=== PATIENT | male | born 1995 | race Caucasian/White ===

== ENCOUNTER 2021-11-05 03:44 | Inpatient (IN) | payer MEDICAID ==
[~2021-11-05] VITALS: Ht 193 cm; Wt 95.3 kg
[2021-11-05 03:57] VITALS: BP 134/98
--- NOTE | 2021-11-05 03:57 | NUR ---
PT W/C ASSISTED TO BED #9
--- NOTE | 2021-11-05 04:08 | NUR ---
26 YO M BIB SELF WITH C/C OF 10/10 ABD PAIN X2HRS. PT POINTS AT EPIGASTRIC REGION. REPORTS EPISODE OF VOMITING. PT SUSTAINED FALL IN LOBBY. PT STATES HE LOST CONCIOUSNESS, FELL HEAD FIRST TO FLOOR BUT DID NOT HIT HEAD PER PT AND SIGNIFICANT OTHER. NO VISIBLE INJURIES. PT STATES "I PASSED OUT BECAUSE PAIN". DENIES HX, RX AND ALLERGIES Addendum: 11/05/21 at 0411 by MEDiWeebo PT TOOK 2 OMEZAPRAZOLE AND 650MG X2HR WITH NO RELIEF.
[2021-11-05] MEDS ORDERED: ONDANSETRON 4 MG/2 ML VIAL IVP ONE (04:25)
[2021-11-05] MEDS ORDERED: NACL 0.9% 1,000 ML IV ONE (04:25)
[2021-11-05] MEDS ORDERED: FAMOTIDINE 20 MG/2 ML VIAL IVP ONE (04:25)
[2021-11-05] MEDS ORDERED: MORPHINE SULFATE 4 MG/ML SYR IVP ONE ×2 (04:25→05:20)
--- NOTE | 2021-11-05 04:39 | NUR ---
BLOOD TAKEN TO LAB, ROBYN MADE AWARE.
[2021-11-05 04:48] LABS: BASOPHILS % (AUTO) 0.2 % (0.0-2.0); EOSINOPHILS % (AUTO) 0.5 % (0.0-4.0); HEMATOCRIT 41.7 % (36-52); HEMOGLOBIN 14.5 g/dL (12.0-18.0); LYMPHOCYTES # (AUTO) 1.9 K/uL (2.0-11.5); LYMPHOCYTES % (AUTO) 21.7 % (20.5-51.1); MEAN CORPUSCULAR HEMOGLOBIN 31 pg (27-31); MEAN CORPUSCULAR HGB CONC 35 g/dL (33-37); MEAN CORPUSCULAR VOLUME 88.9 fL (80-94); MONOCYTES # (AUTO) 0.5 K/uL (0.8-1.0); MONOCYTES % (AUTO) 5.6 % (1.7-9.3); NEUTROPHILS # (AUTO) 6.3 K/uL (1.8-7.7); PLATELET COUNT (AUTO) 152 K/uL (140-450); RED BLOOD CELL COUNT(AUTO) 4.69 MIL/uL (4.20-6.10); RED CELL DISTRIBUTION WIDTH 12.6 % (11.6-13.7); WHITE BLOOD COUNT (AUTO) 8.8 K/uL (4.8-10.8)
[2021-11-05 05:05] LABS: CARBON DIOXIDE 21.2 mmol/L (21-32); CREATININE 1.2 mg/dL (0.6-1.3); POTASSIUM 3.2 mmol/L (3.5-5.1); TOTAL BILIRUBIN 0.2 mg/dL (0.0-1.0)
--- NOTE | 2021-11-05 05:18 | NUR ---
VERBAL ORDER FOR IVP MORPHINE 4MG FOR PAIN
--- NOTE | 2021-11-05 05:44 | NUR ---
US AT BEDSIDE
--- NOTE | 2021-11-05 06:21 | NUR ---
ROSSANA COLLECTED AND TAKEN TO LAB. NO OPEN WOUNDS PER SKIN CHECK. NO MEDS. MED RECON COMPLETED.
--- NOTE | 2021-11-05 07:17 | NUR ---
REPORT GIVEN TO GRAYSON ARNETT. TRANSFER OF CARE AT THIS TIME.
--- NOTE | 2021-11-05 07:18 | NUR ---
RECEIVED REPORT FROM SAMARA GALICIA, TRANSFER OF CARE AT THIS TIME. PT A/O X4 GCS 15, PT CAME IN FOR EPIGASTRIC PAIN, MEDSURG HOLD, ADMITTED FOR INTRACTABLE PAIN SECONDARY TO GALLSTONES. EVEN AND UNLABORED RESPIRATIONS NOTED.
--- NOTE | 2021-11-05 07:31 | NUR ---
PT MOVED TO ER BED 8
--- NOTE | 2021-11-05 08:03 | NUR ---
PT ASKING WHEN HIS DOCTOR WILL BE COMING TO SEE HIM, INFORMED HIM THAT HIS ADMITTING DOCTOR IS NOT IN HOUSE AND WILL MAKE HIS ROUNDS SOMETIME TODAY, I DO NOT HAVE AN EXACT TIME.
[2021-11-05] MEDS: MORPHINE SULFATE 2 MG/ML SYR IVP PRN ×2 (08:10→13:26)
[2021-11-05] MEDS: NACL 0.9% 1,000 ML IV SCH ×2 (08:14→21:43)
--- NOTE | 2021-11-05 08:15 | NUR ---
PT C/O 10/10 EPIGASTRIC PAIN. PT MEDICATED PER PRN ORDERS. ALL NEEDS MET.
--- NOTE | 2021-11-05 12:02 | NUR ---
PT UPSET STATING THAT HE HAS NOT SEEN A DOCTOR SINCE HE HAS BEEN HERE. EXPLAINED TO PT THAT HE SAW THE ER DOCTOR, DR ANNE WHEN HE CAME IN. I EXPLAINED TO THE PATIENT THAT I ONLY TOOK OVER HIS CARE AT 7AM THIS MORNING. HE STATED THAT HE HASNT RECEIVED ANY CARE THIS MORNING AND THE FLUIDS THAT ARE ATTACHED TO HIM ARE NOT RUNNING. I EXPLAINED THE PATIENT THAT FLUIDS ARE RUNNING AT 70ML/HR WHICH IS THE PRESCRIBED ORDER AND I SHOWED HIM THE FLUIDS DROPPING AND EXPLAINED THAT OVER 200ML HAS BEEN INFUSED THUS FAR. EXPLAINED TO THE PATIENT THAT MORPHINE IS ONLY SCHEDULED FOR Q4 HOURS AND I AM NOT ABLE TO ADMINISTER IT BEFORE 4 HOURS. I EXPLAINED TO THE PATIENT DR MCKENZIE IS HIS ADMITTING DOCTOR AND HE IS NOT IN HOUSE AND HE WILL MAKE HIS ROUNDS WHEN HE GETS TO THE HOSPITAL. EXPLAINED TO THE PATIENT THAT I DO NOT HAVE AN EXACT TIME. PT BEGAN RECORDING MY CONVERSATION WITH HIM BECAUSE HIS COUSIN IS A ELECTRICAL SYSTEMS DESIGN ENGINEER. PTS COUSIN MANDA CALLED FOR AN UPDATE BUT WAS NOT ABLE TO PROVIDE HIS CORRECT FIRST AND LAST NAME, SO I WAS NOT ABLE TO PROVIDE INFORMATION. EXPLAINED TO THE PATIENT THAT WITHOUT PROPER IDENTIFICATION OF THE PATIENT, I AM NOT ABLE TO RELEASE INFORMATION. PT STATED HE UNDERSTOOD. I INFORMED HIM THAT I WILL CONTACT DR MCKENZIE TO ASK WHAT TIME HE WILL BE MAKING ROUNDS, AWAITING RESPONSE AT THIS TIME. PT IS C/O 10/04 EPIGASTRIC PAIN, REQUESTING PAIN MEDS. FURNITURE MOVER DRIVER ALISA #[id number] USED. Addendum: 11/05/21 at 1222 by MED1 I ASKED THE PATIENT IF THERE IS ANYTHING ELSE HE NEEDS AT THIS TIME, PT STATED NO HE ONLY WANTS TO TALK TO THE DOCTOR.
[2021-11-05] MEDS ORDERED: SEVOFLURANE 250 ML BTL INH ONE (12:36)
--- NOTE | 2021-11-05 12:48 | NUR ---
PT TAKEN TO CT VIA ANNA
--- NOTE | 2021-11-05 12:54 | NUR ---
PT BACK FROM CT AND CONNECTED TO MONITOR AND FLUIDS
--- NOTE | 2021-11-05 13:09 | NUR ---
DR MCKENZIE AT BEDSIDE EVALUATING PT, DRIVEMATIC MACHINE OPERATOR SERVICES USED
--- NOTE | 2021-11-05 13:15 | NUR ---
Patient's Plan of Care was discussed and reviewed with MARKETING INFORMATION MANAGER: PAM WALKER
--- NOTE | 2021-11-05 13:42 | NUR ---
Patient will be admitted to care of [facility]. Admited to [facility]. Will go to room 112B. Belongings list completed. Report to CONNOR GALICIA.
--- NOTE | 2021-11-05 13:45 | NUR ---
ADMISSION ASSESSMENT/PROCESS COMPLETED. USED LAW OFFICE RECEPTIONIST #[id number] TO GATHER DATA. Addendum: 11/05/21 at 1541 by Sherman Pichardo LVN ERROR
--- NOTE | 2021-11-05 13:50 | NUR ---
RECEIVED REPORT FROM ER NURSE HOPE. PT WHEELED TO [facility] FROM ER VIA WHEELCHAIR. PT ABLE TO AMBULATE FROM WHEELCHAIR TO BED. A&O4, ABLE TO COMMUNICATE NEEDS. WELSH SPEAKER. RESPIRATIONS EVEN AND UNLABORED ON RA. NO DISTRESS NOTED. V/S STABLE. ABDOMEN SOFT AND NON-TENDER. SKIN IS INTACT, WARM AND DRY TO TOUCH. IV SITE AT RAC 20G, INFUSING NS AT 70ML/HR. PT ORIENTED TO ROOM, UNIT AND ROUTINES. PT ON NPO, PT AND DINING SERVICES MANAGER MADE AWARE. MRSA TAKEN. CALL LIGHT WITHIN REACH. SAFETY PRECAUTIONS IN PLACE. WILL CONTINUE TO MONITOR.
--- NOTE | 2021-11-05 14:00 | NUR ---
ADMISSION ASSESSMENT/PROCESS COMPLETED. USED CORE FITTER #[id number] TO GATHER DATA.
--- NOTE | 2021-11-05 15:05 | NUR ---
DR MCKENZIE ORDERED STATUS CODE,FC. KDUR 40MEQ ONCE FOR POTASSIUM 3.2. PT NPO EXCEPT MEDS. ORDERS CARRIED OUT.
[2021-11-05] MEDS ORDERED: POTASSIUM CHLORIDE 10 MEQ TABER PO SCH (15:15)
[2021-11-05 16:00] VITALS: BP 120/70
--- NOTE | 2021-11-05 17:41 | NUR ---
PATIENT HAS BEEN SCREENED AND CATEGORIZED LOW NUTRITION RISK. PATIENT WILL BE SEEN WITHIN 7 DAYS OF ADMISSION. 11/05/21-11/11/[address]
--- NOTE | 2021-11-05 19:13 | NUR ---
ENDORSED PT TO FUEL AGENT NURSE FOR CONTINUITY OF CARE. ALL NEEDS MET THROUGHOUT SHIFT. PT IS STABLE.
--- NOTE | 2021-11-05 19:30 | NUR ---
RECEIVED REPORT FROM DAY SHIFT NURSE PAM. PATIENT IS A&O X 4, BENINESE SPEAKING. PATIENT IS ON ROOM AIR, BREATHING IS NORMAL WITH SYMMETRICAL RISE AND FALL OF CHEST. IV IS A 20G IN RIGHT AC, RUNNING NS 70. PATIENT IS NPO EXCEPT MEDS PENDING A HIDA SCAN LATER TONIGHT. PATIENT IS SITTING UP IN BED. BED IS IN LOWEST POSITION, WHEELS LOCKED, CALL LIGHT IN PLACE. WILL CONTINUE TO OBSERVE PATIENT.
[2021-11-05 20:00] VITALS: BP 127/81
--- NOTE | 2021-11-05 21:30 | NUR ---
POLO FROM RADIOLOGY CAME DOWN TO SEE THE PATIENT FOR THE HYDA SCAN. POLO VERIFIED WITH ME THAT THE PATIENT HAS BEEN NPO. POLO THEN SAID THAT PATIENT NEEDED TO DRINK HIGH FAT MILK FOR TEST. SHOWED POLO THE REDUCED FAT MILK IN THE FRIDGE, HE SAID IT WOULD NOT WORK. TRIED CALLING THE CROWN IRONER OPERATOR, WAS UNABLE TO GET A HOLD OF HER. WENT TO THE OFFICE, DOOR WAS CLOSED AND NO ANSWER WHEN KNOCKING. CHECKED CAFETERIA, UNABLE TO FIND MILK IN CAFETERIA AREA. RILEY WAS FINALLY ABLE TO GET A HOLD OF SOME HIGH FAT MILD IN THE FORM OF ENSURE. GAVE ENSURE TO PATIENT STATING HE NEEDED TO DRINK IT FOR THE PROCEDURE. PATIENT UNDERSTOOD AND IMMEDIATELY DRANK THE ENSURE. WILL CONTINUE TO OBSERVE PATIENT.
--- NOTE | 2021-11-06 | NUR ---
PATIENT WAS PICKED UP FOR HIDA SCAN A LITTLE AFTER 2300. POLO WILL CALL WHEN IT'S TIME TO BRING THE PATIENT HIS MORPHINE. WHEN THE TEST IS COMPLETE. WILL WAIT FOR PHONE CALL FROM POLO FROM RADIOLOGY.
[2021-11-06] MEDS: MORPHINE SULFATE 2 MG/ML SYR IVP PRN (00:43)
--- NOTE | 2021-11-06 00:45 | NUR ---
POLO HAD CALLED AND INFORMED ME THAT PATIENT WOULD BE GOOD TO RECEIVE MORPHINE IN ABOUT 30 MINUTES. PULLED MEDICATION AND WAITED FOR POLO'S CALL THAT PATIENT WAS READY. POLO LATER CALLED AND SAID PATIENT WAS READY TO GET MORPHINE. WENT DOWN TO RADIOLOGY ASSESSED PATIENT AND PROVIDED PATIENT WITH MORPHINE FOR RIGHT LOWER SIDE PAIN. PATIENT TOLERATED WELL. POLO WILL BRING PATIENT BACK TO UNIT IN A FEW MINUTES. WILL WAIT FOR PATIENT TO RETURN TO UNIT.
--- NOTE | 2021-11-06 01:45 | NUR ---
PATIENT ARRIVED BACK ON UNIT. ASSISTED PATIENT BACK INTO BED. ASKED PATIENT IF MORPHINE HELPED WITH PAIN. PATIENT STATED A LITTLE BIT. PATIENT GOT BACK INTO BED TO GO TO SLEEP. WILL CONTINUE TO OBSERVE PATIENT.
--- NOTE | 2021-11-06 03:00 | NUR ---
LOOKED IN ON PATIENT. PATIENT WAS SLEEPING. BREATHING WAS NORMAL WITH SYMMETRICAL RISE AND FALL OF CHEST. IV WAS RUNNING NS AT 70. WILL CONTINUE TO OBSERVE PATIENT.
[2021-11-06] MEDS: NACL 0.9% 1,000 ML IV SCH ×2 (03:15→23:15)
[2021-11-06 04:00] VITALS: BP 110/64
--- NOTE | 2021-11-06 05:00 | NUR ---
OBTAINED PATIENT'S VITALS. VITALS WERE: TEMP 98.0, HR 94, BP 110/64, O2 96, RR 18. PATIENT WAS SLEEPING. AFTER WAKING PATIENT UP FOR VITALS PATIENT ROLLED OVER TO GO BACK TO SLEEP. WILL CONTINUE TO OBSERVE PATIENT.
[2021-11-06] MEDS ORDERED: HYDROcodone/APAP 7.5/325 MG 1 TAB PO PRN (07:40)
[2021-11-06] MEDS ORDERED: guaiFENesin DM 200/20 MG-10 ML 10 ML UDC PO PRN (07:40)
[2021-11-06] MEDS ORDERED: DOCUSATE SODIUM 100 MG GELCAP PO PRN (07:40)
[2021-11-06] MEDS ORDERED: POTASSIUM CHLORIDE 10 MEQ TABER PO PRN (07:40)
[2021-11-06] MEDS ORDERED: ZOLPIDEM 5 MG TAB PO PRN (07:40)
[2021-11-06] MEDS ORDERED: ONDANSETRON 4 MG/2 ML VIAL IM/IVP PRN (07:40)
--- NOTE | 2021-11-06 07:40 | NUR ---
ENDORSED TO DAY SHIFT NURSE JAN FOR CONTINUITY OF CARE. PATIENT IS STABLE.
[2021-11-06 08:00] VITALS: BP 119/70
[2021-11-06] MEDS: PANTOPRAZOLE 40 MG TABEC PO SCH (10:28)
[2021-11-06] MEDS ORDERED: LIDOCAINE/EPI MPF 1%1:200000 30 ML VIAL INJ ONE (12:28)
[2021-11-06] MEDS ORDERED: BUPIVACAINE-MPF 0.25% 30 ML VIAL INJ ONE (12:28)
[2021-11-06] MEDS ORDERED: PROPOFOL 200 MG/20 ML VIAL IV ONE (12:37)
[2021-11-06] MEDS ORDERED: SUCCINYLCHOLINE CHLORIDE 200 MG/10 ML VIAL IVP ONE (12:37)
[2021-11-06] MEDS ORDERED: fentaNYL citrate 0.05 MG/ML VIAL ONE (12:38)
[2021-11-06] MEDS ORDERED: ONDANSETRON 4 MG/2 ML VIAL ONE (12:55)
[2021-11-06] MEDS ORDERED: ROCURONIUM 50 MG/5 ML VIAL IV ONE ×2 (12:56→13:27)
[2021-11-06] MEDS ORDERED: MEPERIDINE 50 MG/ML SYR ONE (13:14)
[2021-11-06] MEDS ORDERED: SUGAMMADEX SODIUM 200 MG/2 ML VIAL IV ONE (14:25)
[2021-11-06] MEDS ORDERED: MEPERIDINE 25 MG/ML SYR ONE (14:27)
[2021-11-06] MEDS ORDERED: MORPHINE SULFATE 2 MG/ML SYR IVP PRN (14:35)
[2021-11-06] MEDS ORDERED: HYDROmorphone 1 MG/ML AMP IVP PRN ×2 (14:35→14:45)
[2021-11-06] MEDS ORDERED: ONDANSETRON 4 MG/2 ML VIAL IVP PRN (14:45)
[2021-11-06] MEDS ORDERED: LACTATED RINGERS 1,000 ML IV SCH (14:45)
[2021-11-06] MEDS ORDERED: MEPERIDINE 25 MG/ML SYR IVP PRN (14:45)
[2021-11-06] MEDS ORDERED: diphenhydrAMINE 50 MG/ML VIAL IVP PRN (14:45)
--- NOTE | 2021-11-06 15:28 | NUR ---
PT WAS TRANSPORTED BACK TO ROOM VIA BED BY OR NURSES. PT CURRENTLY AWAKE, V/S WNL ON ROOM AIR. 3X INCISION SITES WITH DERMABOND NOTED, SCANT SANGUINEOUS DRAINAGE NOTED. JARED DRAIN IN RUQ OF ABDOMEN DRESSING CLEAN, DRY, AND TO SUCTION. PT COMPLAINED PAIN 10/10 IN RUQ OF ABDOMEN. MEDICATED WITH PRN DILAUDID.
[2021-11-06 16:00] VITALS: BP 127/79
[2021-11-06 16:16] LABS: BASOPHILS % (AUTO) 0.1 % (0.0-2.0); EOSINOPHILS % (AUTO) 0.2 % (0.0-4.0); HEMATOCRIT 43.6 % (36-52); LYMPHOCYTES # (AUTO) 0.8 K/uL (2.0-11.5); LYMPHOCYTES % (AUTO) 6.9 % (20.5-51.1); MEAN CORPUSCULAR HEMOGLOBIN 31 pg (27-31); MEAN CORPUSCULAR HGB CONC 34 g/dL (33-37); MEAN CORPUSCULAR VOLUME 89.9 fL (80-94); MONOCYTES # (AUTO) 0.7 K/uL (0.8-1.0); NEUTROPHILS % (AUTO) 86.8 % (42.2-75.2); PLATELET COUNT (AUTO) 145 K/uL (140-450); RED BLOOD CELL COUNT(AUTO) 4.85 MIL/uL (4.20-6.10); WHITE BLOOD COUNT (AUTO) 11.5 K/uL (4.8-10.8)
[2021-11-06 16:31] LABS: CARBON DIOXIDE 25.9 mmol/L (21-32); CREATININE 1.2 mg/dL (0.6-1.3); POTASSIUM 3.9 mmol/L (3.5-5.1)
[2021-11-06 16:34] LABS: CHOL/HDL RATIO 2.8 (1-4.5); PHOSPHORUS 2.8 mg/dL (2.5-4.9)
[2021-11-06 16:56] LABS: PROTHROMBIN TIME 10.7 secs (10.8-13.4)
[2021-11-06] MEDS: MORPHINE SULFATE 4 MG/ML SYR IV PRN ×2 (18:15→22:15)
[2021-11-06] MEDS: ONDANSETRON 4 MG/2 ML VIAL IV PRN (18:15)
[2021-11-07] VITALS: BP 130/80
--- NOTE | 2021-11-07 03:32 | NUR ---
PATIENT AWAKE ALERT HAS A VISITOR AT BED SIDE C/O OF PAIN CHECKED IV SITE NEED NEW IV START 22 GA IN RIGHT HAND. HUNG NS 70 HOUR HAS X1 JARED 40CC OUT FROM DAY SHIFT. PATIENT C/O OF PAIN IN ABDOMEN MEDICATED WITH MORPHINE 4 MG IVP 2215. TEMP 98.6 LUNGS CLEAR. NO DISTRESS NOTED SAT 100% PATIENT ROOM AIR.
[2021-11-07] MEDS: MORPHINE SULFATE 4 MG/ML SYR IV PRN ×3 (05:36→16:03)
[2021-11-07 07:11] LABS: BASOPHILS % (AUTO) 0.1 % (0.0-2.0); EOSINOPHILS % (AUTO) 0.4 % (0.0-4.0); HEMATOCRIT 42.6 % (36-52); HEMOGLOBIN 14.7 g/dL (12.0-18.0); LYMPHOCYTES # (AUTO) 1.8 K/uL (2.0-11.5); LYMPHOCYTES % (AUTO) 14.8 % (20.5-51.1); MEAN CORPUSCULAR HEMOGLOBIN 31 pg (27-31); MEAN CORPUSCULAR HGB CONC 35 g/dL (33-37); MEAN CORPUSCULAR VOLUME 90.5 fL (80-94); MONOCYTES % (AUTO) 8.3 % (1.7-9.3); NEUTROPHILS # (AUTO) 9.1 K/uL (1.8-7.7); NEUTROPHILS % (AUTO) 76.4 % (42.2-75.2); PLATELET COUNT (AUTO) 154 K/uL (140-450); RED BLOOD CELL COUNT(AUTO) 4.71 MIL/uL (4.20-6.10); RED CELL DISTRIBUTION WIDTH 12.8 % (11.6-13.7)
[2021-11-07 07:15] LABS: CARBON DIOXIDE 28.8 mmol/L (21-32); CREATININE 1.2 mg/dL (0.6-1.3); POTASSIUM 3.8 mmol/L (3.5-5.1)
[2021-11-07 08:00] VITALS: BP 129/62
[2021-11-07 09:22] LABS: ALBUMIN 3.4 g/dL (3.4-5.0); BILIRUBIN,DIRECT 0.2 mg/dL (0.0-0.3); TOTAL BILIRUBIN 0.7 mg/dL (0.0-1.0)
[2021-11-07] MEDS: ONDANSETRON 4 MG/2 ML VIAL IV PRN ×2 (09:54→16:04)
[2021-11-07] MEDS: PANTOPRAZOLE 40 MG TABEC PO SCH (09:54)
[2021-11-07] MEDS ORDERED: ACET-8386 PO (10:32)
[2021-11-07] MEDS ORDERED: CEPH-588 PO (10:32)
--- NOTE | 2021-11-07 10:58 | NUR ---
DR BEGUM HERE TO REMOVE JARED AND SUTURES.
[2021-11-07] MEDS: ACETAMINOPHEN 325 MG TAB PO PRN ×2 (15:48→20:24)
[2021-11-07 16:00] VITALS: BP 121/80
[2021-11-07 17:20] VITALS: BP 129/62
--- NOTE | 2021-11-07 19:20 | NUR ---
LAKSHMI. REPORT FROM GRAYSON MONTOYA. PATIENT SITTING ON BED AWAKE, A/OX4. RESPIRATION EVEN AND UNLABORED. IV OF NS INFUSING AT 60 M/HR, RIGHT HAND G22. INCISION IN THE ABDOMEN (4) WITH BAND AID DRESSING, 1 JARED SITE WITH DRESSING. ALL DRY AND INTACT. ADDITIONAL DISCHARGE INSTRUCTIONS GIVEN. GIRLFRIEND AT THE BEDSIDE. PAIN 1/10, STATED TOLERABLE. VERBALIZED UNDERSTANDING TO ALL INSTRUCTIONS.
--- NOTE | 2021-11-07 19:50 | NUR ---
CHARGE NURSE RILEY PRINTED ANOTHER DISCHARGE PAPERS IN [place]. GIVEN TO THE PATIENT. IV DISCONTINUED.
[2021-11-07 20:00] VITALS: BP 107/71
--- NOTE | 2021-11-07 20:30 | NUR ---
REFUSED WHEELCHAIR. AMBULATED TO [facility] FOR DISCHARGE TO HOME IN STABLE CONDITION, ACCOMPANIED BY GIRLFRIEND.
== END 2021-11-07 20:30 | disposition home or self-care (01) | DRG 263 ==
LOC: EDBD 03:44 → MED 03:44 → MTU 07:24
PROVIDERS: ADMIT Student in an Organized Health Care Education/Training Program; ATTEND Student in an Organized Health Care Education/Training Program
PROC: BF121ZZ Fluoroscopy of Gallbladder using Low Osmolar Contrast (ICD-10-PCS; 2021-11-06)
PROC: 0FN44ZZ Release Gallbladder, Percutaneous Endoscopic Approach (ICD-10-PCS; 2021-11-06)
PROC: 0F9440Z Drainage of Gallbladder with Drainage Device, Percutaneous Endoscopic Approach (ICD-10-PCS; 2021-11-06)
PROC: 0FT44ZZ Resection of Gallbladder, Percutaneous Endoscopic Approach (ICD-10-PCS; principal; 2021-11-06 11:50)
DX: K80.12 Calculus of gallbladder with acute and chronic cholecystitis without obstruction (principal); E87.6 Hypokalemia; R73.9 Hyperglycemia, unspecified; Z20.822 Contact with and (suspected) exposure to COVID-19
CPT/HCPCS: 36415; 74300; 76705; 78445; 80048; 80053; 80076; 82150; 82374; 83036; 83690; 83735; 83880; 84100; 85025; 85610; 85730; 87081; 96361; 96374; 96375; 99285; A9510; C1887; J0330; J0696; J1170; J2001; J2175; J2270; J2405; J2704; J3010; J3490; J7030; J7060; Q0092; Q9965

== ENCOUNTER 2021-11-16 12:27 | Emergency (ER) | payer MEDICAID ==
[~2021-11-16] VITALS: Ht 190.5 cm; Wt 108.4 kg
[~2021-11-16 12:27] MED LIST: ACET-8386 PO; CEPH-588 PO
[2021-11-16 12:34] VITALS: BP 133/80
--- NOTE | 2021-11-16 13:25 | NUR ---
HANSEL POLANCO ATTEMPTED TO BRING PT BACK, NOT FOUND IN LOBBY/OUTSIDE
--- NOTE | 2021-11-16 13:50 | NUR ---
2ND ATTEMPT TO BRING PT BACK, NOT FOUND IN LOBBY/OUTSIDE
--- NOTE | 2021-11-16 14:15 | NUR ---
LAST ATTEMPT TO BRING PT BACK, NOT FOUND IN LOBBY/OUTSIDE. PATIENT LEFT WITHOUT BEING SEEN BY DR. AHMADI AND HANSEL POLANCO. NO FURTHER CARE PROVIDED FOR PATIENT.
== END 2021-11-16 13:25 | disposition left against medical advice (07) ==
LOC: MED 12:27
DX: Z48.02 Encounter for removal of sutures (principal); Z53.21 Procedure and treatment not carried out due to patient leaving prior to being seen by health care provider